=== PATIENT | female | born 2000 | race Caucasian/White ===

== ENCOUNTER 2024-04-18 23:19 | Emergency (ER) | payer BC, MEDICAID ==
[~2024-04-18] VITALS: Ht 162.6 cm; Wt 88.5 kg
[2024-04-18 23:36] VITALS: BP_SYST 121; PULSE 84; RESP 20; TEMP 99.1; O2SAT 97
[2024-04-19] MEDS: NACL 0.9% 1,000 ML IV ONE (00:11)
[2024-04-19] MEDS: ONDANSETRON HCL 4 MG/2 ML VIAL IVP ONE (00:12)
[2024-04-19 00:51] LABS: CALCIUM 9.1 mg/dL (8.4-11.0); CREATININE 0.63 mg/dL (0.55-1.30); POTASSIUM 3.4 mmol/L (3.5-5.1)
[2024-04-19 00:58] LABS: EOSINOPHILS # (AUTO) 0.1 K/uL (0.0-0.4); HEMOGLOBIN 12.5 g/dL (12.0-16.0); MONOCYTES # (AUTO) 0.4 K/uL (0.0-1.0); RED CELL DISTRIBUTION WIDTH 12.6 % (9.0-15.0)
[2024-04-19 01:05] LABS: BASOPHILS % (AUTO) 0.6 % (0.0-2.0); EOSINOPHILS % (AUTO) 0.9 % (0.0-4.0); LYMPHOCYTES # (AUTO) 0.7 K/uL (1.0-5.5); LYMPHOCYTES % (AUTO) 8.1 % (20.5-51.5); MEAN CORPUSCULAR HEMOGLOBIN 32 pg (27-31); MEAN CORPUSCULAR HGB CONC 36 % (32-36); MEAN CORPUSCULAR VOLUME 88 fL (79.0-98.0); NEUTROPHILS % (AUTO) 85.4 % (40.0-70.0); PLATELET COUNT (AUTO) 242 K/uL (130-430); RED BLOOD CELL COUNT(AUTO) 3.97 MIL/uL (4.2-6.2); WHITE BLOOD COUNT (AUTO) 8.2 K/uL (4.8-10.8)
[2024-04-19] MEDS ORDERED: ONDA-8 TL (01:32)
[2024-04-19 01:36] VITALS: BP_SYST 111; PULSE 82; RESP 22; TEMP 98.8; O2SAT 99
== END 2024-04-19 01:36 | disposition home or self-care (01) ==
LOC: SED 23:19
DX: O21.1 Hyperemesis gravidarum with metabolic disturbance (principal); Z3A.08 8 weeks gestation of pregnancy; Z79.899 Other long term (current) drug therapy
CPT/HCPCS: 99285; 80048; 85025; 36415; 96374; 76801; 96361; 76817; J2405; J7030